=== PATIENT | male | born 1940 | race Caucasian/White ===

== ENCOUNTER 2017-03-24 04:02 | Inpatient (IN) | payer MEDICARE ==
[~2017-03-24] VITALS: Ht 182.9 cm; Wt 107.6 kg
[2017-03-24] MEDS ORDERED: HYDRALAZINE HCL 20 MG/ML VIAL ONE (04:23)
[2017-03-24] MEDS ORDERED: ASPIRIN 81MG TAB.CHEW ONE (04:23)
[2017-03-24] MEDS ORDERED: NITROGLYCERIN 1GM/1 INCH PACKET TD ONE (04:24)
[2017-03-24 04:27] LABS: BASOPHILS % (AUTO) 0.7 % (0.0-5.0); EOSINOPHILS % (AUTO) 2.5 % (0.0-8.0); HEMATOCRIT 38.9 % (42-54); MEAN CORPUSCULAR HEMOGLOBIN 32.5 pg (27.0-33.0); MEAN CORPUSCULAR HGB CONC 34.7 g/dL (32.0-36.0); MEAN CORPUSCULAR VOLUME 93.7 fL (79-99); MONOCYTES % (AUTO) 6.4 % (3.0-13.0); NEUTROPHILS % (AUTO) 77.4 % (40.0-77.0); PLATELET COUNT (AUTO) 229 K/uL (130-400); RED BLOOD CELL COUNT(AUTO) 4.15 MIL/uL (4.50-6.20); RED CELL DISTRIBUTION WIDTH 14.6 % (11.0-15.5); WHITE BLOOD COUNT (AUTO) 8.3 K/uL (4.8-10.8)
[2017-03-24 04:35] LABS: CREATININE 1.6 mg/dL (0.5-1.5); POTASSIUM 4.1 mmol/L (3.5-5.1)
[2017-03-24] MEDS ORDERED: ONDANSETRON HCL 4 MG/2 ML VIAL ONE (04:36)
[2017-03-24 04:40] LABS: ALBUMIN 3.6 g/dL (3.5-5.0); BILIRUBIN,TOTAL 0.6 mg/dL (0.2-1.0); INR 1.15 (0.85-1.15); PARTIAL THROMBOPLASTIN TIME 33.6 SEC (26.3-35.5); TOTAL PROTEIN, SERUM 7.5 g/dL (6.0-8.3)
[2017-03-24 04:46] LABS: B-TYPE NATRIURETIC PEPTIDE 549 pg/mL (0-100)
[2017-03-24] MEDS ORDERED: FUROSEMIDE 10 MG/ML 4ML VIAL ONE (05:25)
[2017-03-24] MEDS ORDERED: LABETALOL HCL 5 MG/ML 20ML VIAL IV ONE (06:37)
[2017-03-24 06:52] VITALS: BP 191/82
[2017-03-24 07:00] VITALS: BP 150/73
[2017-03-24] MEDS ORDERED: RANO10003 PO (08:25)
[2017-03-24] MEDS ORDERED: RIVA20TA PO (08:25)
[2017-03-24] MEDS ORDERED: ATOR20TA65 PO (08:25)
[2017-03-24] MEDS ORDERED: CARV6.25 PO ×2 (08:25→13:35)
[2017-03-24] MEDS ORDERED: SITA1TAB6 PO (08:25)
[2017-03-24] MEDS ORDERED: GLIM4TAB3 PO (08:25)
[2017-03-24] MEDS ORDERED: LOSA100T29 PO (08:25)
[2017-03-24 09:20] LABS: CREATINE KINASE MB 2.7 ng/mL (0.5-3.6); CREATINE KINASE, TOTAL 115 U/L (21-232); MYOGLOBIN 259 ng/mL (10-92); TROPONIN I < 0.04 ng/mL (0.00-0.06)
[2017-03-24 12:22] VITALS: BP 167/84
[2017-03-24] MEDS ORDERED: ASPI-1197 PO (13:35)
[2017-03-24 15:48] LABS: APPEARANCE,URINE Clear (CLEAR); BILIRUBIN,URINE Negative (NEGATIVE); COLOR,URINE Yellow (YELLOW); GLUCOSE, URINE (UA) 500 mg/dL (NEGATIVE); KETONES,URINE Negative (NEGATIVE); LEUKOCYTE ESTERASE ,URINE Negative (NEGATIVE); NITRATE,URINE Negative (NEGATIVE); OCCULT BLOOD,URINE Moderate (NEGATIVE); PROTEIN,URINE POS 1+ (NEGATIVE); UROBILINOGEN,URINE 0.2 mg/dL (0.2-1.0)
[2017-03-24 16:00] VITALS: BP 173/90
[2017-03-24 16:00] LABS: BACTERIA,URINE None Seen /HPF (None Seen); SQUAMOUS EPITHELIAL CELL,UR 0-2 /LPF (0-2); WBC,URINE None Seen /HPF (0-1)
[2017-03-24] MEDS: CEFTRIAXONE SODIUM 1 GM IVP SCH (17:45)
[2017-03-24 19:28] VITALS: BP 160/97
[2017-03-24 23:56] VITALS: BP 155/84
[2017-03-25 04:00] VITALS: BP 139/86
[2017-03-25 04:39] LABS: HEMATOCRIT 39.2 % (42-54); MEAN CORPUSCULAR HEMOGLOBIN 32.3 pg (27.0-33.0); MEAN CORPUSCULAR VOLUME 94.8 fL (79-99); PLATELET COUNT (AUTO) 201 K/uL (130-400); RED BLOOD CELL COUNT(AUTO) 4.13 MIL/uL (4.50-6.20); RED CELL DISTRIBUTION WIDTH 14.5 % (11.0-15.5); WHITE BLOOD COUNT (AUTO) 11.6 K/uL (4.8-10.8)
[2017-03-25 04:49] LABS: CREATININE 2.2 mg/dL (0.5-1.5); MAGNESIUM 2.1 mg/dL (1.80-2.40); POTASSIUM 4.2 mmol/L (3.5-5.1)
[2017-03-25 05:11] LABS: BAND NEUTROPHILS % (MANUAL) 1 % (0-2); EOSINOPHILS % (MANUAL) 2 % (1-6); LYMPHOCYTES % (MANUAL) 10 % (22-44); MONOCYTES % (MANUAL) 5 % (2-9); REACTIVE LYMPHOCYTES 1 % (0-0); SEGMENTED NEUTROPHILS % 81 % (40-70)
[2017-03-25 05:12] LABS: MAN.DIFF COMMENT-IMPRESSION MANUAL DIFFERENTIAL
[2017-03-25 05:15] LABS: B-TYPE NATRIURETIC PEPTIDE 721 pg/mL (0-100)
[2017-03-25 07:19] LABS: TROPONIN I 0.06 ng/mL (0.00-0.06)
[2017-03-25 07:43] LABS: CREATINE KINASE MB 1.8 ng/mL (0.5-3.6)
[2017-03-25 08:00] VITALS: BP 139/79
[2017-03-25 12:00] VITALS: BP 138/94
[2017-03-25 16:00] VITALS: BP 129/83
[2017-03-25] MEDS: CEFTRIAXONE SODIUM 1 GM IVP SCH (16:47)
[2017-03-25 19:50] VITALS: BP 151/80
[2017-03-25] MEDS: ATORVASTATIN CALCIUM 20 MG TABLET PO SCH (20:46)
[2017-03-25] MEDS: RANOLAZINE 500 MG TAB.SR.12H PO SCH (20:46)
[2017-03-25] MEDS: CARVEDILOL 6.25 MG TABLET PO SCH (20:47)
[2017-03-25 23:53] VITALS: BP 128/61
[2017-03-26 03:49] VITALS: BP 125/75
[2017-03-26 04:08] LABS: CREATININE 2.6 mg/dL (0.5-1.5); POTASSIUM 4.3 mmol/L (3.5-5.1)
[2017-03-26 07:00] VITALS: BP 136/68
[2017-03-26] MEDS: CARVEDILOL 6.25 MG TABLET PO SCH ×2 (08:41→21:47)
[2017-03-26] MEDS: ASPIRIN 81MG TAB.CHEW PO SCH (08:41)
[2017-03-26] MEDS: RANOLAZINE 500 MG TAB.SR.12H PO SCH ×2 (08:41→21:46)
[2017-03-26 08:47] LABS: CREATINE KINASE MB 1.8 ng/mL (0.5-3.6); TROPONIN I 0.04 ng/mL (0.00-0.06)
[2017-03-26 11:00] VITALS: BP 143/68
[2017-03-26] MEDS: ISOSORBIDE MONO 30MG TAB SR PO SCH (11:26)
[2017-03-26] MEDS: SODIUM CHLORIDE 0.9% 1000ML 1,000 ML IV SCH (11:27)
[2017-03-26] MEDS: ENOXAPARIN SODIUM 30 MG/0.3 ML SQ SCH (11:27)
[2017-03-26] MEDS: CEFTRIAXONE SODIUM 1 GM IVP SCH (15:34)
[2017-03-26 16:00] VITALS: BP 128/67
[2017-03-26 20:12] VITALS: BP 147/83
[2017-03-26] MEDS: ATORVASTATIN CALCIUM 20 MG TABLET PO SCH (21:47)
[2017-03-26] MEDS: HYDRALAZINE HCL 10 MG TABLET PO SCH (21:47)
[2017-03-27 00:05] VITALS: BP 115/55
[2017-03-27 03:37] VITALS: BP 134/77
[2017-03-27 03:57] LABS: HEMATOCRIT 32.8 % (42-54); MEAN CORPUSCULAR HEMOGLOBIN 33.4 pg (27.0-33.0); MEAN CORPUSCULAR HGB CONC 35.4 g/dL (32.0-36.0); MEAN CORPUSCULAR VOLUME 94.2 fL (79-99); PLATELET COUNT (AUTO) 180 K/uL (130-400); RED BLOOD CELL COUNT(AUTO) 3.48 MIL/uL (4.50-6.20); RED CELL DISTRIBUTION WIDTH 14.3 % (11.0-15.5); WHITE BLOOD COUNT (AUTO) 6.9 K/uL (4.8-10.8)
[2017-03-27 04:05] LABS: CREATININE 2.5 mg/dL (0.5-1.5)
[2017-03-27 04:11] LABS: BAND NEUTROPHILS % (MANUAL) 5 % (0-2); EOSINOPHILS % (MANUAL) 3 % (1-6); LYMPHOCYTES % (MANUAL) 19 % (22-44); MAN.DIFF COMMENT-IMPRESSION MANUAL DIFFERENTIAL; MONOCYTES % (MANUAL) 2 % (2-9); PLATELET MORPHOLOGY COMMENT ADEQUATE; SEGMENTED NEUTROPHILS % 71 % (40-70)
[2017-03-27 07:00] VITALS: BP 153/83
[2017-03-27] MEDS: HYDRALAZINE HCL 10 MG TABLET PO SCH ×2 (07:45→21:51)
[2017-03-27] MEDS: ENOXAPARIN SODIUM 30 MG/0.3 ML SQ SCH (07:45)
[2017-03-27] MEDS: ISOSORBIDE MONO 30MG TAB SR PO SCH (07:45)
[2017-03-27] MEDS: CARVEDILOL 6.25 MG TABLET PO SCH ×2 (07:45→21:52)
[2017-03-27] MEDS: ASPIRIN 81MG TAB.CHEW PO SCH (07:45)
[2017-03-27] MEDS: DOCUSATE SODIUM 100 MG CAP PO SCH ×2 (07:45→21:52)
[2017-03-27] MEDS: RANOLAZINE 500 MG TAB.SR.12H PO SCH ×2 (07:45→21:52)
[2017-03-27] MEDS: SODIUM CHLORIDE 0.9% 1000ML 1,000 ML IV SCH (07:46)
[2017-03-27 11:00] VITALS: BP 118/72
[2017-03-27] MEDS: CEFTRIAXONE SODIUM 1 GM IVP SCH (15:19)
[2017-03-27 16:00] VITALS: BP 135/75
[2017-03-27 18:39] LABS: APPEARANCE,URINE Clear (CLEAR); BILIRUBIN,URINE Negative (NEGATIVE); COLOR,URINE Yellow (YELLOW); GLUCOSE, URINE (UA) 250 mg/dL (NEGATIVE); KETONES,URINE Negative (NEGATIVE); LEUKOCYTE ESTERASE ,URINE Trace (NEGATIVE); NITRATE,URINE Negative (NEGATIVE); OCCULT BLOOD,URINE Negative (NEGATIVE); PROTEIN,URINE POS 2+ (NEGATIVE); UROBILINOGEN,URINE 0.2 mg/dL (0.2-1.0)
[2017-03-27 18:47] LABS: RBC,URINE 0-1 /HPF (0-1)
[2017-03-27 18:53] LABS: BACTERIA,URINE Few /HPF (None Seen)
[2017-03-27 18:54] LABS: SQUAMOUS EPITHELIAL CELL,UR Rare /LPF (0-2)
[2017-03-27 19:35] VITALS: BP 140/60
[2017-03-27] MEDS: ATORVASTATIN CALCIUM 20 MG TABLET PO SCH (21:51)
[2017-03-28] VITALS (14 sets, daily range): BP systolic 117–171; BP diastolic 68–95
[2017-03-28 04:22] LABS: HEMATOCRIT 33.4 % (42-54); MEAN CORPUSCULAR HEMOGLOBIN 32.4 pg (27.0-33.0); MEAN CORPUSCULAR HGB CONC 34.7 g/dL (32.0-36.0); MEAN CORPUSCULAR VOLUME 93.2 fL (79-99); PLATELET COUNT (AUTO) 193 K/uL (130-400); RED BLOOD CELL COUNT(AUTO) 3.59 MIL/uL (4.50-6.20); RED CELL DISTRIBUTION WIDTH 14.3 % (11.0-15.5); WHITE BLOOD COUNT (AUTO) 6.8 K/uL (4.8-10.8)
[2017-03-28 04:33] LABS: CREATININE 2.1 mg/dL (0.5-1.5)
[2017-03-28 04:34] LABS: INR 1.06 (0.85-1.15); PARTIAL THROMBOPLASTIN TIME 29.6 SEC (26.3-35.5); PROTHROMBIN TIME 11.1 SEC (9.6-11.6)
[2017-03-28 04:43] LABS: BAND NEUTROPHILS % (MANUAL) 14 % (0-2); BASOPHILS % (MANUAL) 2 % (0-2); EOSINOPHILS % (MANUAL) 2 % (1-6); LYMPHOCYTES % (MANUAL) 22 % (22-44); MAN.DIFF COMMENT-IMPRESSION MANUAL DIFFERENTIAL; MONOCYTES % (MANUAL) 5 % (2-9); PLATELET MORPHOLOGY COMMENT ADEQUATE; SEGMENTED NEUTROPHILS % 55 % (40-70)
[2017-03-28] MEDS ORDERED: BUPIVACAINE/PF 0.25% 30ML VIAL IJ ONE (07:17)
[2017-03-28] MEDS ORDERED: VANCOMYCIN 1GM+NS 250ML 500 ML IV ONE (07:17)
[2017-03-28] MEDS ORDERED: MEPERIDINE-PF 50 MG/ML SYG ONE (07:17)
[2017-03-28] MEDS ORDERED: MIDAZOLAM HCL 1 MG/ML 2ML VIAL ONE ×2 (07:17→08:19)
[2017-03-28] MEDS ORDERED: LIDOCAINE HCL 1% MDV 50ML VIAL ONE (07:17)
[2017-03-28] MEDS ORDERED: ISOVUE-300 100 ML VIAL IV ONE (07:45)
[2017-03-28] MEDS ORDERED: ACETAMINOPHEN-CODEINE 300/30MG TAB PO PRN ×2 (09:30)
[2017-03-28] MEDS ORDERED: ACETAMINOPHEN 325 MG TAB PO PRN (09:30)
[2017-03-28] MEDS: HYDRALAZINE HCL 10 MG TABLET PO SCH ×2 (10:13→21:00)
[2017-03-28] MEDS: ISOSORBIDE MONO 30MG TAB SR PO SCH (10:13)
[2017-03-28] MEDS: ASPIRIN 81MG TAB.CHEW PO SCH (10:13)
[2017-03-28] MEDS: CARVEDILOL 6.25 MG TABLET PO SCH ×2 (10:14→20:15)
[2017-03-28] MEDS: DOCUSATE SODIUM 100 MG CAP PO SCH ×2 (10:14→20:14)
[2017-03-28] MEDS: RANOLAZINE 500 MG TAB.SR.12H PO SCH ×2 (10:16→20:15)
[2017-03-28] MEDS: CEFTRIAXONE SODIUM 1 GM IVP SCH (16:15)
[2017-03-28] MEDS: ATORVASTATIN CALCIUM 20 MG TABLET PO SCH (20:15)
[2017-03-29 03:43] VITALS: BP 159/84
[2017-03-29 07:00] VITALS: BP 169/89
[2017-03-29] MEDS ORDERED: Isosorbide Mono 30MG Tab Sr PO (08:52)
[2017-03-29] MEDS ORDERED: HYDR-3420 PO (08:52)
[2017-03-29] MEDS ORDERED: RIVA15TA PO (08:52)
[2017-03-29 08:59] VITALS: BP 169/89
[2017-03-29] MEDS: ASPIRIN 81MG TAB.CHEW PO SCH (08:59)
[2017-03-29] MEDS: CARVEDILOL 6.25 MG TABLET PO SCH (08:59)
[2017-03-29] MEDS: ISOSORBIDE MONO 30MG TAB SR PO SCH (08:59)
[2017-03-29] MEDS: HYDRALAZINE HCL 10 MG TABLET PO SCH (08:59)
[2017-03-29] MEDS: DOCUSATE SODIUM 100 MG CAP PO SCH (08:59)
[2017-03-29] MEDS: RANOLAZINE 500 MG TAB.SR.12H PO SCH (08:59)
[2017-03-29] MEDS: SODIUM CHLORIDE 0.9% 1000ML 1,000 ML IV SCH ×2 (08:59→09:00)
[2017-03-29 09:00] LABS: HEMATOCRIT 37.7 % (42-54); MEAN CORPUSCULAR HEMOGLOBIN 31.8 pg (27.0-33.0); MEAN CORPUSCULAR HGB CONC 33.8 g/dL (32.0-36.0); MEAN CORPUSCULAR VOLUME 94.1 fL (79-99); PLATELET COUNT (AUTO) 194 K/uL (130-400); RED CELL DISTRIBUTION WIDTH 14.6 % (11.0-15.5); WHITE BLOOD COUNT (AUTO) 8.1 K/uL (4.8-10.8)
[2017-03-29 09:07] LABS: CREATININE 1.9 mg/dL (0.5-1.5); POTASSIUM 4.1 mmol/L (3.5-5.1)
[2017-03-29 09:51] LABS: EOSINOPHILS % (MANUAL) 4 % (1-6); LYMPHOCYTES % (MANUAL) 12 % (22-44); MAN.DIFF COMMENT-IMPRESSION MANUAL DIFFERENTIAL; MONOCYTES % (MANUAL) 10 % (2-9); PLATELET MORPHOLOGY COMMENT ADEQUATE; SEGMENTED NEUTROPHILS % 74 % (40-70)
== END 2017-03-29 11:45 | disposition home or self-care (01) | DRG 226 ==
LOC: EDH 04:02 → OBSVTOIN 05:40 → 2AH 05:40
PROVIDERS: ADMIT Family Medicine; ATTEND Family Medicine
PROC: 02HK3KZ Insertion of Defibrillator Lead into Right Ventricle, Percutaneous Approach (ICD-10-PCS; principal; 2017-03-28)
PROC: 0JH608Z Insertion of Defibrillator Generator into Chest Subcutaneous Tissue and Fascia, Open Approach (ICD-10-PCS; 2017-03-28)
DX: I25.5 Ischemic cardiomyopathy (principal); I50.43 Acute on chronic combined systolic (congestive) and diastolic (congestive) heart failure; N17.9 Acute kidney failure, unspecified; I13.0 Hypertensive heart and chronic kidney disease with heart failure and stage 1 through stage 4 chronic kidney disease, or unspecified chronic kidney disease; I16.1 Hypertensive emergency; E11.22 Type 2 diabetes mellitus with diabetic chronic kidney disease; E11.51 Type 2 diabetes mellitus with diabetic peripheral angiopathy without gangrene; I25.10 Atherosclerotic heart disease of native coronary artery without angina pectoris; L97.509 Non-pressure chronic ulcer of other part of unspecified foot with unspecified severity; I35.8 Other nonrheumatic aortic valve disorders; I48.2 Chronic atrial fibrillation; N18.9 Chronic kidney disease, unspecified; N20.0 Calculus of kidney; I25.2 Old myocardial infarction; Z79.01 Long term (current) use of anticoagulants; Z79.82 Long term (current) use of aspirin; Z79.899 Other long term (current) drug therapy; Z87.442 Personal history of urinary calculi; Z95.1 Presence of aortocoronary bypass graft; Z95.5 Presence of coronary angioplasty implant and graft; Z95.810 Presence of automatic (implantable) cardiac defibrillator
CPT/HCPCS: 33249; 36415; 71045; 76700; 76770; 80048; 80053; 81001; 82550; 82553; 83735; 83874; 83880; 84484; 85025; 85610; 85730; 87088; 87804; 93005; 93306; 99152; 99153; 99291; A4218; J0360; J0696; J1650; J1940; J2175; J2250; J2405; J3370; J3490; J7030; Q9967

== ENCOUNTER → 2017-04-13 | Outpatient (CLI) | payer MEDICARE ==
[~2017-04-13] MED LIST: ASPI-1197 PO; ATOR20TA65 PO; CARV6.25 PO; GLIM4TAB3 PO; HYDR-3420 PO; Isosorbide Mono 30MG Tab Sr PO; RANO10003 PO; RIVA15TA PO
== END | disposition home or self-care (01) ==
LOC: SHCH 14:10
PROVIDERS: ATTEND Internal Medicine Cardiovascular Disease
DX: I25.10 Atherosclerotic heart disease of native coronary artery without angina pectoris (principal); I51.89 Other ill-defined heart diseases; I51.7 Cardiomegaly
CPT/HCPCS: 93306

== ENCOUNTER 2021-03-04 23:19 | Emergency (ER) | payer MEDICARE ==
[~2021-03-04 23:19] MED LIST changes: +AEC81 PO; -ASPI-1197 PO; +ATOR10 PO; -ATOR20TA65 PO; -CARV6.25 PO; +CARV6.2579 PO; +FURO40TA5 PO; +FURO80TA3 PO; -GLIM4TAB3 PO; +GLIM4TAB36 PO; -HYDR-3420 PO; +HYDR-4154 PO; +ISOS30TA92 PO; -Isosorbide Mono 30MG Tab Sr PO; +METF-444 PO; -RANO10003 PO; +RANO10005 PO
== END 2021-03-04 23:21 ==
LOC: EDH 23:19
DX: I46.9 Cardiac arrest, cause unspecified (principal); I10 Essential (primary) hypertension; I25.10 Atherosclerotic heart disease of native coronary artery without angina pectoris; E11.9 Type 2 diabetes mellitus without complications; Z95.0 Presence of cardiac pacemaker; Z98.890 Other specified postprocedural states; Z79.82 Long term (current) use of aspirin; Z79.84 Long term (current) use of oral hypoglycemic drugs; Z79.899 Other long term (current) drug therapy
CPT/HCPCS: 92950